=== PATIENT | male | born 1995 | race Caucasian/White ===

== ENCOUNTER 2018-07-01 20:33 | Emergency (ER) | payer MEDICAID ==
[~2018-07-01] VITALS: Ht 172.7 cm; Wt 90.7 kg
--- NOTE | 2018-07-01 20:52 | NUR ---
Pt. ambulated into ED w/ Mother w/ c/o 12/03 pain to mandible and R side temporal/maxilla/TMJ x2 weeks, pt. reports recieving tetanus shot last year after laceration by metallic object while working, no SOB/F/C/N/V, pt. reports poor ability to open mouth,
--- NOTE | 2018-07-01 22:28 | NUR ---
Pt. left AMA after being given copies of images, AMA form signed, left w/ mother, all belongings w/ pt., ID band removed, no acute distress,
== END 2018-07-01 22:32 | disposition left against medical advice (07) ==
LOC: ER 20:34
DX: S03.01XA Dislocation of jaw, right side, initial encounter (principal); E03.9 Hypothyroidism, unspecified; F17.200 Nicotine dependence, unspecified, uncomplicated; Z88.0 Allergy status to penicillin; X58.XXXA Exposure to other specified factors, initial encounter; Y93.89 Activity, other specified; Y92.89 Other specified places as the place of occurrence of the external cause; Y99.8 Other external cause status
CPT/HCPCS: A4663

== ENCOUNTER 2021-05-14 20:40 | Emergency (ER) | payer SELFPAY ==
--- NOTE | 2021-05-15 01:28 | NUR ---
Pt not in waiting room.
== END 2021-05-15 01:28 | disposition left against medical advice (07) ==
LOC: ER 20:41
DX: Z53.21 Procedure and treatment not carried out due to patient leaving prior to being seen by health care provider (principal)